=== PATIENT | male | born 1950 | race Caucasian/White ===

== ENCOUNTER 2017-05-14 10:07 | Emergency (ER) | payer OTHER, MEDICARE ==
[~2017-05-14] VITALS: Ht 180.3 cm; Wt 105.8 kg
[~2017-05-14 10:07] MED LIST: ALLOPURINOL300 MG PO; ALTACE10 M1 PO; BACTRIM,SEPT1 TABLET PO; CELEBREX200 MG PO; HYDROCHLOROTHIA25 MG PO; INNOPRAN XL120 MG PO; MAG-OX400 M1 PO; MOTRIN800 MG PO; NORVASC10 MG PO; TYLENOL EXTRA500 MG PO; ULTRAM ER100 MG PO; UROCIT-K10 MEQ PO
[2017-05-14 12:13] LABS: CHLORIDE 102 mEq/L (99-109); POTASSIUM 4.5 mEq/L (3.7-5.4); SODIUM 130 mEq/L (136-147)
[2017-05-14 12:15] LABS: GLUCOSE 105 mg/dL (70-99)
[2017-05-14 12:16] LABS: ANION GAP 11 MEQ/L (2-14)
[2017-05-14 12:19] LABS: GFR ESTIMATE (CALCULATED) > 59 mL/min/
[2017-05-14 12:20] LABS: UREA NITROGEN (BUN) 28 mg/dL (9-23)
[2017-05-14 12:57] LABS: HEMATOCRIT 38.8 % (38.0-50.0); MCH 36.7 PG (29.0-34.0); MCHC 36.1 G/DL (30.0-36.0); MCV 101.8 FL (86-99); MEAN PLAT.VOLUME 9.5 uM^3 (9.0-12.4); PLATELET COUNT 114 K/uL (156-360); RBC DIS.WIDTH-CV 14.8 % (11.8-14.6); RBC DIS.WIDTH-SD 55.5 % (39-53); RED BLOOD COUNT 3.81 M/uL (4.00-5.50); WHITE BLOOD COUNT 7.4 K/uL (4.1-10.2)
[2017-05-14 13:06] LABS: INTER. NORMALIZED RATIO 1.4; PROTHROMBIN TIME 14.5 (9.2-11.2); PTT 34.1 (25-32)
[2017-05-14 13:20] LABS: TROP-I INTERPRETATION NEGATIVE; TROPONIN-I < 0.01 ng/mL (0.0-0.30)
[2017-05-14 13:51] LABS: ADD MIUA? YES; BILIRUBIN NEGATIVE; BLOOD NEGATIVE; COLOR AMBER ((YELLOW)); GLUCOSE (STRIP) NEGATIVE; KETONES NEGATIVE; LEUKOCYTES TRACE; NITRITE NEGATIVE; PROTEIN (STRIP) 30; SPECIFIC GRAVITY 1.018 (1.000-1.030)
[2017-05-14 14:10] LABS: BACTERIA NONE SEEN /HPF; EPITHELIAL CELLS RARE /HPF; HYALINE CASTS 0-5 /LPF; MUCUS TRACE /LPF; RED BLOOD CELLS 0-5 /HPF (0-5); UCUL ADDED? NO
[2017-05-14] MEDS ORDERED: KEFLEX500 MG PO (16:15)
[2017-05-14 22:46] VITALS: BP 110/78
== END 2017-05-14 22:50 | disposition home or self-care (01) ==
LOC: EME 10:07
PROVIDERS: Emergency Medicine
PROC: 0W9G3ZZ Drainage of Peritoneal Cavity, Percutaneous Approach (ICD-10-PCS; principal; 2017-05-14)
DX: E86.0 Dehydration (principal); R18.8 Other ascites; R06.09 Other forms of dyspnea; C22.8 Malignant neoplasm of liver, primary, unspecified as to type; E83.119 Hemochromatosis, unspecified; I10 Essential (primary) hypertension
CPT/HCPCS: 49083; 71010; 80048; 81003; 82140; 84484; 85027; 85610; 85730; 87086; 93005; 99281; 99285; J0696; J7030; J7050